=== PATIENT | male | born 1960 | race American Indian/Alaskan Native ===

== ENCOUNTER 2018-04-08 10:55 | Emergency (ER) | payer SELFPAY ==
[2018-04-08 15:46] LABS: Basophils # (Auto) 0.1 K/mm3 (0.0-0.1); Basophils % (Auto) 0.5 % (0.0-1.8); Eosinophils # (Auto) 0.3 K/mm3 (0.0-0.4); Eosinophils % (Auto) 2.9 % (0.0-4.3); Hemoglobin 16.3 gm/dl (11.8-15.2); Lymphocytes # (Auto) 2.8 K/mm3 (1.2-5.4); Lymphocytes % (Auto) 24.4 % (13.4-35.0); Mean Corpuscular HGB Conc 33 % (32-34); Mean Corpuscular Hemoglobin 28 pg (28-32); Mean Corpuscular Volume 87 fl (84-94); Monocytes # (Auto) 0.7 K/mm3 (0.0-0.8); Monocytes % (Auto) 5.9 % (0.0-7.3); Platelet Count 169 K/mm3 (140-440); Red Blood Count 5.77 M/mm3 (3.65-5.03); Red Cell Distribution Width 14.4 % (13.2-15.2)
[2018-04-08 15:49] LABS: BUN/Creatinine Ratio 17; Blood Urea Nitrogen 10 mg/dL (9-20); Calcium 9.8 mg/dL (8.4-10.2); Hemolysis Index 12
--- NOTE | 2018-04-08 16:36 | XRay Report ---
FINAL REPORT EXAM: XR FOOT 2V LT HISTORY: left foot wound TECHNIQUE: AP and lateral views of the left foot PRIORS: None. FINDINGS: There is no evidence for acute fracture or dislocation. A moderate hallux valgus deformity is present. No soft tissue swelling or radiopaque foreign bodies are seen. Bony mineralization is normal. Joint spaces are maintained. Spurring off the posterior and plantar aspects of the calcaneus is seen. Spurring off the dorsum of the tarsal bones is also noted. IMPRESSION: No acute soft tissue or bony abnormality noted. Moderate hallux valgus deformity.
[2018-04-08] MEDS ORDERED: CLEOCIN 900 MG/50 mL 900 MG/50 ML BAG IV ONE (21:00)
--- NOTE | 2018-04-08 21:31 | Emergency Department Report ---
ED Lower Extremity HPI - General Chief Complaint: Extremity Problem,Nontraumatic Stated Complaint: FOOT WOUND Time Seen by Provider: 04/08/18 20:54 Source: patient Mode of arrival: Ambulatory Limitations: No Limitations - History of Present Illness Initial Comments: 57-year-old male with a past medical history of [id number] diabetes and hypertension presents to the hospital complaining of open wound to the first MTP area of the left foot times one week. No trauma reported. Moderate pain with palpation and ambulation. Positive malodorous discharge from wound. No reports of fever. His glucose stating "up a little" but I have not been significantly high. Patient states his tetanus is up to date. PMD none - Related Data Previous Rx's Medication Instructions Recorded Last Taken Type Ibuprofen [Motrin] 800 mg PO Q8HR PRN #30 tablet 04/08/18 Unknown Rx Sulfamethoxazole/Trimethoprim 1 each PO BID #20 tablet 04/08/18 Unknown Rx [Bactrim DS TAB] traMADol [Ultram 50 MG tab] 50 mg PO Q6HR PRN #20 tablet 04/08/18 Unknown Rx Allergies Allergy/AdvReac Type Severity Reaction Status Date / Time No Known Allergies Allergy Verified 04/08/18 21:05 ED Review of Systems ROS: Stated complaint: FOOT WOUND Other details as noted in HPI Comment: All other systems reviewed and negative ED Past Medical Hx - Past Medical History Hx Hypertension: Yes Hx Diabetes: Yes - Surgical History Past Surgical History?: No - Social History Smoking Status: Current Every Day Smoker Substance Use Type: None - Medications Home Medications: Home Medications Medication Instructions Recorded Confirmed Last Taken Type Ibuprofen [Motrin] 800 mg PO Q8HR PRN #30 tablet 04/08/18 Unknown Rx Sulfamethoxazole/Trimethoprim 1 each PO BID #20 tablet 04/08/18 Unknown Rx [Bactrim DS TAB] traMADol [Ultram 50 MG tab] 50 mg PO Q6HR PRN #20 tablet 04/08/18 Unknown Rx ED Physical Exam - General Limitations: No Limitations - Other Other exam information: General: No limitations, patient is alert in no acute distress Head exam: Atraumatic, normocephalic Eyes exam: Normal appearance ENT: Moist mucous membrane, normal oropharynx Neck exam: Normal inspection, full range of motion, no meningismus nontender Respiratory exam: Clear to auscultation bilateral, no wheezes, rales, crackles Cardiovascular: Normal rate and rhythm, normal heart sounds Abdomen: Soft, nondistended, and nontender, with normal bowel sounds, no rebound, or guarding Extremity: Full range of motion left foot on plantar surface at the first MTP joint patient has a open wounds without any active drainage. Positive tenderness to palpation. No warmth or erythema. 2+ DP pulses without foot edema Back: Normal Inspection, full range of motion, no tenderness Neurologic: Alert, oriented x3, cranial nerves intact, no motor or sensory deficit Psychiatric: normal affect, normal mood Skin: See extremity exam ED Course Vital Signs 04/08/18 04/08/18 04/09/18 11:14 20:43 00:45 Temperature 98.3 F 97.6 F Pulse Rate 73 72 68 Respiratory 18 18 Rate Blood Pressure 177/98 Blood Pressure 188/107 151/62 [Right] O2 Sat by Pulse 97 98 100 Oximetry ED Lower Extremity MDM - Lab Data Result diagrams: 04/08/18 15:15 04/08/18 15:15 Lab Results 04/08/18 04/08/18 Range/Units 15:15 15:15 WBC 11.5 H (4.5-11.0) K/mm3 RBC 5.77 H (3.65-5.03) M/mm3 Hgb 16.3 H (11.8-15.2) gm/dl Hct 50.0 H (35.5-45.6) % MCV 87 (84-94) fl MCH 28 (28-32) pg MCHC 33 (32-34) % RDW 14.4 (13.2-15.2) % Plt Count 169 (140-440) K/mm3 Lymph % (Auto) 24.4 (13.4-35.0) % [place] % (Auto) 5.9 (0.0-7.3) % Eos % (Auto) 2.9 (0.0-4.3) % Baso % (Auto) 0.5 (0.0-1.8) % Lymph # 2.8 (1.2-5.4) K/mm3 [place] # 0.7 (0.0-0.8) K/mm3 Eos # 0.3 (0.0-0.4) K/mm3 Baso # 0.1 (0.0-0.1) K/mm3 Seg Neutrophils % 66.3 (40.0-70.0) % Seg Neutrophils # 7.6 (1.8-7.7) K/mm3 Sodium 134 L (137-145) mmol/L Potassium 4.0 (3.6-5.0) mmol/L Chloride 96.7 L (98-107) mmol/L Carbon Dioxide 23 (22-30) mmol/L Anion Gap 18 mmol/L BUN 10 (9-20) mg/dL Creatinine 0.6 L (0.8-1.5) mg/dL Estimated GFR > 60 ml/min BUN/Creatinine Ratio 17 % Glucose 237 H (75-100) mg/dL Calcium 9.8 (8.4-10.2) mg/dL - Radiology Data Radiology results: report reviewed Left foot x-ray: IMPRESSION: No acute soft tissue or bony abnormality noted. Moderate hallux valgus deformity. - Medical Decision Making Patient received one IV dose of antibiotics (vancomycin) and the ED. No signs of DKA or sepsis. Patient will be discharged home with pain medication and antibiotics. Wound care clinic and PMD follow-up will be encouraged. - Differential Diagnosis diabetic foot infection, osteomyelitis Critical Care Time: No Critical care attestation.: If time is entered above; I have spent that time in minutes in the direct care of this critically ill patient, excluding procedure time. ED Disposition Clinical Impression: Diabetic infection of left foot Diabetic foot ulcer Qualifiers: Diabetic foot ulcer location: other Diabetes mellitus type: type 2 Laterality: left Disposition: DC-01 TO HOME OR SELFCARE Is pt being admited?: No Condition: Stable Additional Instructions: Take the medications as prescribed. It is very important to follow-up with you the clinic/primary care doctor and the wound care clinic provided for further management of your diabetic foot infection. Without follow-up and further management you are at risk for worsening infection which can lead to amputation. Please return to the ER if symptoms worsen as indicated by your discharge instructions. Continue to monitor your sugar levels. Prescriptions: Ibuprofen [Motrin] 800 mg PO Q8HR PRN #30 tablet PRN Reason: Pain Sulfamethoxazole/Trimethoprim [Bactrim DS TAB] 1 each PO BID #20 tablet traMADol [Ultram 50 MG tab] 50 mg PO Q6HR PRN #20 tablet PRN Reason: Pain Referrals: [facility] [Provider Group] - 3-5 Days (Primary care clinic) DORA RODRIGUEZ MD [Staff Physician] - 3-5 Days (Primary care doctor) [facility] [Outside] - 3-5 Days (Wound care clinic) Time of Disposition: 00:54
[2018-04-08] MEDS: HumuLIN R IV ONE (22:14)
[2018-04-08] MEDS: VANCOMYCIN 2,000 MG in NACL 0.9% 500 ML 500 ML IV ONE (22:23)
[2018-04-09 00:46] VITALS: BP 151/62
== END 2018-04-09 01:18 | disposition home or self-care (01) ==
LOC: ED 10:55
DX: E11.621 Type 2 diabetes mellitus with foot ulcer (principal); L97.529 Non-pressure chronic ulcer of other part of left foot with unspecified severity; I10 Essential (primary) hypertension; F17.200 Nicotine dependence, unspecified, uncomplicated
CPT/HCPCS: 36415; 73620; 80048; 82962; 85025; 96365; 96366; 96375; 99284; J3370; J7040; J1815

== ENCOUNTER 2018-04-27 08:54 | Emergency (ER) | payer OTHER ==
[2018-04-27 10:14] LABS: Basophils % (Auto) 0.3 % (0.0-1.8); Eosinophils # (Auto) 0.1 K/mm3 (0.0-0.4); Eosinophils % (Auto) 1.6 % (0.0-4.3); Hematocrit 43.4 % (35.5-45.6); Hemoglobin 14.9 gm/dl (11.8-15.2); Lymphocytes # (Auto) 1.7 K/mm3 (1.2-5.4); Lymphocytes % (Auto) 20.8 % (13.4-35.0); Mean Corpuscular HGB Conc 34 % (32-34); Mean Corpuscular Hemoglobin 29 pg (28-32); Mean Corpuscular Volume 86 fl (84-94); Monocytes # (Auto) 0.3 K/mm3 (0.0-0.8); Monocytes % (Auto) 4.3 % (0.0-7.3); Platelet Count 136 K/mm3 (140-440); Red Blood Count 5.07 M/mm3 (3.65-5.03); Red Cell Distribution Width 14.5 % (13.2-15.2)
[2018-04-27 10:29] LABS: Alanine Aminotransferase 8 units/L (7-56); Albumin 3.5 g/dL (3.9-5); BUN/Creatinine Ratio 18; Blood Urea Nitrogen 9 mg/dL (9-20); Calcium 9.1 mg/dL (8.4-10.2); Hemolysis Index 9
[2018-04-27] MEDS ORDERED: VANCOMYCIN/NS 1 GM/250 ML 1 GM/250 ML BAG IV ONE (11:19)
--- NOTE | 2018-04-27 11:26 | Emergency Department Report ---
Blank Doc - Documentation Documentation: Patient is a 57-year-old male with history of hypertension and diabetes. Patient presented to the ER complaining left foot wound mainly to the heel with black discoloration and necrosis. Patient was seen here one week ago received IV vancomycin and put on oral clindamycin. Patient stated that he finished a course of antibiotic that his symptoms are getting worse now. Patient denied any fever, nausea or vomiting. On exam patient has an obvious gangrene to the first metatarsal area. 2+ dorsalis pedis and able to feel the tibialis posterior. Patient will need IV vancomycin, vascular consult and admission.
[2018-04-27] MEDS ORDERED: VANCOMYCIN PHARMACY TO DOSE IV SCH ×2 (12:00→13:00)
[2018-04-27] MEDS ORDERED: VANCOMYCIN 2,000 MG in NACL 0.9% 500 ML 500 ML IV ONE ×2 (12:00→12:30)
[2018-04-27] MEDS ORDERED: VANCOMYCIN VIAL IV ONE (12:06)
--- NOTE | 2018-04-27 12:15 | Emergency Department Report ---
ED Extremity Problem HPI - General Chief complaint: Extremity Problem,Nontraumatic Stated complaint: DIABETIC ULCER BLEEDING Time Seen by Provider: 04/27/18 11:09 Source: patient Mode of arrival: Ambulatory Limitations: No Limitations - History of Present Illness Initial comments: 57-year-old male with a past medical history hypertension and non-insulin- dependent diabetes presents to the hospital complaining of continued left foot ulceration. Ulceration developed earlier this month. I initially saw patient on April 08 after 1 week of symptoms. At that time he was treated with IV vancomycin, discharged on Bactrim, and referred to wound care clinic. Patient attempted to follow up with wound care clinic but they required $200 payment which he could not afford. Patient apparently has been noncompliant with his unknown blood pressure medication and his metformin 1 month for (which he did not mention on his last visit) and continues to smoke cigarettes. He finished his antibiotics several days ago but returns because the wounds is no better and he was unable to afford the wound care clinic. Patient does admit that he no longer has purulent discharge but now has malodorous bloody discharge. Denies fevers and pain is moderate in unchanged. - Related Data Previous Rx's Medication Instructions Recorded Last Taken Type Ibuprofen [Motrin] 800 mg PO Q8HR PRN #30 tablet 04/08/18 Unknown Rx Sulfamethoxazole/Trimethoprim 1 each PO BID #20 tablet 04/08/18 Unknown Rx [Bactrim DS TAB] traMADol [Ultram 50 MG tab] 50 mg PO Q6HR PRN #20 tablet 04/08/18 Unknown Rx Gabapentin [Neurontin] 300 mg PO BID #60 cap 04/27/18 Unknown Rx Lisinopril [Zestril TAB] 10 mg PO QDAY #30 tablet 04/27/18 Unknown Rx amLODIPine [Norvasc] 10 mg PO DAILY #30 tab 04/27/18 Unknown Rx metFORMIN [Glucophage] 500 mg PO BID #60 tablet 04/27/18 Unknown Rx Allergies Allergy/AdvReac Type Severity Reaction Status Date / Time No Known Allergies Allergy Verified 04/08/18 21:05 ED Review of Systems ROS: Stated complaint: DIABETIC ULCER BLEEDING Other details as noted in HPI Comment: All other systems reviewed and negative ED Past Medical Hx - Past Medical History Hx Hypertension: Yes Hx Diabetes: Yes - Surgical History Past Surgical History?: No - Social History Smoking Status: Current Every Day Smoker Substance Use Type: None - Medications Home Medications: Home Medications Medication Instructions Recorded Confirmed Last Taken Type Ibuprofen [Motrin] 800 mg PO Q8HR PRN #30 tablet 04/08/18 Unknown Rx Sulfamethoxazole/Trimethoprim 1 each PO BID #20 tablet 04/08/18 Unknown Rx [Bactrim DS TAB] traMADol [Ultram 50 MG tab] 50 mg PO Q6HR PRN #20 tablet 04/08/18 Unknown Rx Gabapentin [Neurontin] 300 mg PO BID #60 cap 04/27/18 Unknown Rx Lisinopril [Zestril TAB] 10 mg PO QDAY #30 tablet 04/27/18 Unknown Rx amLODIPine [Norvasc] 10 mg PO DAILY #30 tab 04/27/18 Unknown Rx metFORMIN [Glucophage] 500 mg PO BID #60 tablet 04/27/18 Unknown Rx ED Physical Exam - General Limitations: No Limitations - Other Other exam information: General: No limitations, patient is alert in no acute distress Head exam: Atraumatic, normocephalic Eyes exam: Normal appearance, ENT: Moist mucous membrane, normal oropharynx Neck exam: Normal inspection, full range of motion, no meningismus nontender Respiratory exam: Clear to auscultation bilateral, no wheezes, rales, crackles Cardiovascular: Regular heartbeat with early beats noted on auscultation Abdomen: Soft, nondistended, and nontender, with normal bowel sounds, no rebound, or guarding Extremity: Full range of motion, left foot ulceration at the MTP area of the first metatarsal phalangeal area of the plantar surface of the foot measuring 3 cm in diameter. This lesion is hard like a callus formation, brown in color, no active or malodorous purulent discharge noted. No surrounding erythema, warmth, or edema. 2+ DP pulse noted. Unable to palpate dorsalis pedal pulse but I am able to auscultate this pulse with Doppler. No lesion on the heel. No signs of gangrene to toes. Back: Normal Inspection, full range of motion, no tenderness Neurologic: Alert, oriented x3, cranial nerves intact, no motor or sensory deficit Psychiatric: normal affect, normal mood Skin: Warm, dry, intact ED Course Vital Signs 04/27/18 04/27/18 04/27/18 09:17 10:55 15:21 Temperature 98.5 F 98.1 F Pulse Rate 69 88 Respiratory 20 18 Rate Blood Pressure 170/95 Blood Pressure 168/91 [Left] O2 Sat by Pulse 96 96 97 Oximetry - Reevaluation(s) Reevaluation #1: 04/27/18 12:43 Hospitalist consulted regarding dispo to determine it pt meets admission criteria - Consultations Consultation #1: 04/27/18 12:50 Case d/w Keira regarding ekg findings. no acute emergent cards intervention warranted Consultation #2: 04/27/18 12:[address] Singh consulted to assisted with dispo planning. ED Medical Decision Making - Lab Data Result diagrams: 04/27/18 09:34 04/27/18 09:34 Lab Results 04/27/18 04/27/18 Range/Units 09:34 09:34 WBC 8.1 (4.5-11.0) K/mm3 RBC 5.07 H (3.65-5.03) M/mm3 Hgb 14.9 (11.8-15.2) gm/dl Hct 43.4 (35.5-45.6) % MCV 86 (84-94) fl MCH 29 (28-32) pg MCHC 34 (32-34) % RDW 14.5 (13.2-15.2) % Plt Count 136 L (140-440) K/mm3 Lymph % (Auto) 20.8 (13.4-35.0) % [place] % (Auto) 4.3 (0.0-7.3) % Eos % (Auto) 1.6 (0.0-4.3) % Baso % (Auto) 0.3 (0.0-1.8) % Lymph # 1.7 (1.2-5.4) K/mm3 [place] # 0.3 (0.0-0.8) K/mm3 Eos # 0.1 (0.0-0.4) K/mm3 Baso # 0.0 (0.0-0.1) K/mm3 Seg Neutrophils % 73.0 H (40.0-70.0) % Seg Neutrophils # 5.9 (1.8-7.7) K/mm3 Sodium 139 (137-145) mmol/L Potassium 3.7 (3.6-5.0) mmol/L Chloride 101.0 (98-107) mmol/L Carbon Dioxide 25 (22-30) mmol/L Anion Gap 17 mmol/L BUN 9 (9-20) mg/dL Creatinine 0.5 L (0.8-1.5) mg/dL Estimated GFR > 60 ml/min BUN/Creatinine Ratio 18 % Glucose 241 H (75-100) mg/dL Calcium 9.1 (8.4-10.2) mg/dL Total Bilirubin 0.40 (0.1-1.2) mg/dL AST 10 (5-40) units/L ALT 8 (7-56) units/L Alkaline Phosphatase 61 (35-129) units/L Total Protein 6.6 (6.3-8.2) g/dL Albumin 3.5 L (3.9-5) g/dL Albumin/Globulin Ratio 1.1 % - EKG Data -: EKG Interpreted by Me (supraventricular bigeminy, old anterior infarct) EKG shows normal: sinus rhythm, axis (qrs 34), QRS complexes (qrsd 82), ST-T waves (no stemi) Rate: normal (61) - EKG Data When compared to previous EKG there are: previous EKG unavailable - Medical Decision Making Patient has a nonhealing diabetic ulcer that appears to be improved infectious- mullins compared to previous visit. Although also persists there is no longer any purulent malodorous drainage. No leukocytosis, fever, redness, or edema. Pt has distal pulses on exam therefore emergent CT imaging is not warranted. Patient's lack of appropriate healing likely secondary to poor glucose control secondary to medication noncompliance and the fact that patient continues to smoke cigarettes. Patient will benefit from long-term wound care plan, lifestyle modification, compliance with medications. Patient was seen and evaluated by hospitalist Dr. Singh has assisted with disposition planning and arrangement of additional outpatient wound care services. In the ED patient received 1 dose of IV vancomycin, insulin as per sliding scale protocol, and lisinopril 20 mg for hypertension. - Differential Diagnosis diabetic foot ulcers, osteomyelitis Critical Care Time: No Critical care attestation.: If time is entered above; I have spent that time in minutes in the direct care of this critically ill patient, excluding procedure time. ED Disposition Clinical Impression: Diabetes, Foot ulcer, left, Non-compliance HTN (hypertension) Qualifiers: Hypertension type: essential hypertension Qualified Code(s): I10 - Essential ( primary) hypertension Disposition: - TO HOME OR SELFCARE Is pt being admited?: No Condition: Stable Instructions: Diabetes Mellitus Type 2 in Adults (ED), Diabetic Foot Ulcers (ED ), Hypertension (ED) Prescriptions: amLODIPine [Norvasc] 10 mg PO DAILY #30 tab Gabapentin [Neurontin] 300 mg PO BID #60 cap Lisinopril [Zestril TAB] 10 mg PO QDAY #30 tablet metFORMIN [Glucophage] 500 mg PO BID #60 tablet Referrals: [facility] [Outside] - 3-5 Days [facility] [Provider Group] - 3-5 Days Time of Disposition: 14:01 (Hosptitalist to dispo)
[2018-04-27] MEDS ORDERED: ZESTRIL PO ONE (12:17)
[2018-04-27] MEDS ORDERED: HumuLIN R IV ONE (12:17)
--- NOTE | 2018-04-27 12:49 | History and Physical Report ---
History of Present Illness Chief complaint: I have an ulcer on my foot History of present illness: 57 YO Male with DM, HTN,Nicotine Dependence, Medication Noncompliance presents to ED for evaluation. Pt seen and evaluated in ED and found to have a chronic Left foot ulcer which has improved since last visit. Pt seen and evaluated in ED. Pt states that he attempted to follow up with wound care clinic but they required $200 payment which he could not afford. Pt denies fever, chills, palpitations, NVD, trauma or recent ill contacts. Pt acknowledges poor foot care due to lack of resources. Pt counseled regarding medication noncompliance , and informed of risk of worsening symptoms and need for future amputation. Pt acknowledges understanding instructions. Past History Past Medical History: diabetes, hypertension Past Surgical History: No surgical history, Other (reviewed) Social history: , lives with family Family history: diabetes, hypertension Medications and Allergies Allergies Allergy/AdvReac Type Severity Reaction Status Date / Time No Known Allergies Allergy Verified 04/08/18 21:05 Home Medications Medication Instructions Recorded Confirmed Last Taken Type Ibuprofen [Motrin] 800 mg PO Q8HR PRN #30 tablet 04/08/18 Unknown Rx Sulfamethoxazole/Trimethoprim 1 each PO BID #20 tablet 04/08/18 Unknown Rx [Bactrim DS TAB] traMADol [Ultram 50 MG tab] 50 mg PO Q6HR PRN #20 tablet 04/08/18 Unknown Rx Active Meds: Active Medications Vancomycin HCl 2,000 mg/ (Sodium Chloride) 520 mls @ 250 mls/hr IV ONCE ONE Stop: 04/27/18 14:34 Vancomycin HCl (Vancomycin Pharmacy To Dose) 1 each IV PKCONSULT [facility] Review of Systems Constitutional: other (foot ulcer), no fever, no chills, no sweats Ears, nose, mouth and throat: no ear pain, no ear discharge, no tinnitis, no decreased hearing, no nose pain, no nasal congestion Cardiovascular: no chest pain, no orthopnea, no palpitations, no rapid/ irregular heart beat, no edema, no syncope, no lightheadedness Respiratory: no cough, no cough with sputum, no excessive sputum, no hemoptysis , no shortness of breath, no dyspnea on exertion Gastrointestinal: no abdominal pain, no nausea, no vomiting, no diarrhea, no constipation, no change in bowel habits, no hematemesis Genitourinary Male: no hematuria, no flank pain, no discharge, no urinary frequency, no urinary hesitancy Rectal: no pain, no incontinence, no bleeding Musculoskeletal: no neck stiffness, no neck pain, no shooting arm pain, no arm numbness/tingling, no low back pain, no shooting leg pain Integumentary: foot/leg ulcers (Left plantar ulcer, chronic, healing, no fluctuance, masses, discharge, or foul odor) Neurological: no paralysis, no weakness, no parathesias, no numbness, no tingling, no seizures, no syncope Psychiatric: no memory loss, no change in sleep habits, no sleep disturbances, no insomnia, no hypersomnia, no change in appetite, no change in libido Endocrine: no cold intolerance, no heat intolerance, no polyphagia, no polydipsia, no polyuria Hematologic/Lymphatic: no easy bruising, no easy bleeding, no lymphadenopathy, no lymphedema Allergic/Immunologic: no urticaria, no allergic rhinitis, no wheezing, no persistent infections, no angioedema Exam - Constitutional Vitals: Temp Pulse Resp BP Pulse Ox 98.5 F 69 20 170/95 96 04/27/18 09:17 04/27/18 09:17 04/27/18 10:55 04/27/18 09:17 04/27/18 10:55 General appearance: Present: no acute distress, well-nourished - EENT Eyes: Present: PERRL ENT: hearing intact, clear oral mucosa - Neck Neck: Present: supple, normal ROM - Respiratory Respiratory effort: normal Respiratory: bilateral: CTA - Cardiovascular Heart Sounds: Present: S1 & S2. Absent: rub, click - Extremities Extremities: pulses symmetrical, No edema Extremity abnormal: ulceration (Left plantar ulcer, no fluctuance, masses, discharge, foul odor, pain upon ambulation) Peripheral Pulses: within normal limits - Abdominal General gastrointestinal: Present: soft, non-tender, non-distended, normal bowel sounds Male genitourinary: Present: normal - Integumentary Integumentary: Present: clear, warm, dry - Musculoskeletal Musculoskeletal: gait normal, strength equal bilaterally - Psychiatric Psychiatric: appropriate mood/affect, intact judgment & insight - Neurologic Neurologic: CNII-XII intact, moves all extremities Results - Labs CBC & Chem 7: 04/27/18 09:34 04/27/18 09:34 Labs: Abnormal lab results 04/27/18 04/27/18 Range/Units 09:34 09:34 RBC 5.07 H (3.65-5.03) M/mm3 Plt Count 136 L (140-440) K/mm3 Seg Neutrophils % 73.0 H (40.0-70.0) % Creatinine 0.5 L (0.8-1.5) mg/dL Glucose 241 H (75-100) mg/dL Albumin 3.5 L (3.9-5) g/dL Assessment and Plan - Patient Problems (1) Foot ulcer, left Current Visit: Yes Status: Acute Plan to address problem: Outpatient wound clinic f/u, (2) Diabetes Current Visit: Yes Status: Acute Plan to address problem: consistent carbohydrate diet, f/u pcp 1wk, blood glucose log bid. (3) HTN (hypertension) Current Visit: Yes Status: Acute Qualifiers: Hypertension type: essential hypertension Qualified Code(s): I10 - Essential (primary) hypertension Plan to address problem: resume prehospital medication, blood pressure log tid,
[2018-04-27 16:59] VITALS: BP 168/91
--- NOTE | 2018-05-02 14:13 | XRay Report ---
FINAL REPORT PROCEDURE: Left foot. TECHNIQUE: Three views. HISTORY: First metatarsal infection. COMPARISON: Left foot 04/08/2018. FINDINGS: The bones appear intact without fracture or dislocation. There is mild osteoarthritis involving the 1st metatarsal-phalangeal joint. There is a mild hallux valgus deformity. The remaining joint spaces appear satisfactory. There may be some air within the soft tissues on the plantar surface near the 1st metatarsal-phalangeal joint. This could also represent an ulcer with an overlying bandage. Clinical correlation is recommended. IMPRESSION: Possible soft tissue infection. 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
== END 2018-04-27 16:25 | disposition home or self-care (01) ==
LOC: ED 08:54
DX: E11.621 Type 2 diabetes mellitus with foot ulcer (principal); L97.429 Non-pressure chronic ulcer of left heel and midfoot with unspecified severity; I10 Essential (primary) hypertension; F17.200 Nicotine dependence, unspecified, uncomplicated; Z79.4 Long term (current) use of insulin
CPT/HCPCS: 36415; 73630; 80053; 85025; 93005; 93010; 96374; 99284; J3370; J7040

== ENCOUNTER 2018-09-05 07:50 | Outpatient (CLI) | payer SELFPAY ==
[2018-09-05] MEDS ORDERED: XYLOCAINE TOPICAL 4% TP ONE ×2 (08:15→09:52)
== END 2018-09-05 07:51 | disposition home or self-care (01) ==
LOC: WOUND 07:50
PROVIDERS: ATTEND Surgery
DX: E11.621 Type 2 diabetes mellitus with foot ulcer (principal); L89.893 Pressure ulcer of other site, stage 3; L97.512 Non-pressure chronic ulcer of other part of right foot with fat layer exposed; I10 Essential (primary) hypertension
CPT/HCPCS: 11043; G0463; 99215

== ENCOUNTER 2018-09-19 07:50 | Outpatient (CLI) | payer OTHER ==
[2018-09-19] MEDS ORDERED: XYLOCAINE TOPICAL 4% TP ONE ×2 (08:09→15:41)
== END 2018-09-19 07:51 | disposition home or self-care (01) ==
LOC: WOUND 07:50
PROVIDERS: ATTEND Surgery
DX: E11.621 Type 2 diabetes mellitus with foot ulcer (principal); L89.893 Pressure ulcer of other site, stage 3; L97.512 Non-pressure chronic ulcer of other part of right foot with fat layer exposed; I10 Essential (primary) hypertension; F17.200 Nicotine dependence, unspecified, uncomplicated

== ENCOUNTER 2020-08-11 07:56 | Emergency (ER) | payer OTHER, SELFPAY ==
[2020-08-11 08:24] LABS: Basophils % (Auto) 0.4 % (0.0-1.8); Eosinophils # (Auto) 0.1 K/mm3 (0.0-0.4); Eosinophils % (Auto) 1.4 % (0.0-4.3); Hematocrit 46.8 % (35.5-45.6); Hemoglobin 16.2 gm/dl (11.8-15.2); Lymphocytes # (Auto) 2.1 K/mm3 (1.2-5.4); Mean Corpuscular HGB Conc 35 % (32-34); Mean Corpuscular Volume 89 fl (84-94); Monocytes # (Auto) 0.3 K/mm3 (0.0-0.8); Monocytes % (Auto) 5.5 % (0.0-7.3); Platelet Count 157 K/mm3 (140-440); Red Blood Count 5.24 M/mm3 (3.65-5.03); Red Cell Distribution Width 14.2 % (13.2-15.2)
[2020-08-11 08:33] LABS: Bilirubin,Urine NEG (Negative); Blood,Urine SM (Negative); Color,Urine Yellow (Yellow); Hyaline Casts,Urine 1 /LPF; Mucus,Urine FEW /HPF
[2020-08-11 09:01] LABS: Alanine Aminotransferase 8 units/L (7-56); BUN/Creatinine Ratio 10; Blood Urea Nitrogen 7 mg/dL (9-20); Calcium 9.9 mg/dL (8.4-10.2); Hemolysis Index 7
[2020-08-11] MEDS ORDERED: POTASSIUM CHLORIDE ER 20 MEQ TAB PO ONE ×2 (09:37→12:34)
[2020-08-11] MEDS ORDERED: SODIUM CHLORIDE 0.9% 1000 ML 1,000 ML IV ONE (09:38)
--- NOTE | 2020-08-11 11:11 | Cat Scan Report ---
CT OF THE ABDOMEN AND PELVIS WITH INTRAVENOUS CONTRAST INDICATION / CLINICAL INFORMATION: Abdominal pain and massive weight loss. TECHNIQUE: The patient received 100 cc Omnipaque [address] scans at this location are performed using CT dose reduction for ALARA by means of automated exposure control. COMPARISON: None available. FINDINGS: ABDOMEN: The gallbladder is surgically absent. There are a couple of small nonspecific calcifications in the periphery of the liver. No other focal liver lesion is seen. The bile ducts, pancreas, spleen , adrenal glands, kidneys and bowel demonstrate no significant abnormality. No adenopathy is seen. Th ere are atherosclerotic calcifications involving the aorta without aneurysm. There is minimal right b asilar subsegmental atelectasis. PELVIS: The distal ureters and urinary bladder are normal. The prostate gland is mildly enlarged. A n ormal appendix is present and there is no evidence of diverticulitis. No abnormal mass or fluid colle ction is seen. I do not identify a hernia. There is mild spondylosis. IMPRESSION: No acute abnormality is identified. No cause for weight loss is seen. Signer Name: Fazal Nayak MD Signed: 08/11/2020 11:07 AM Workstation Name: [id number]
[2020-08-11 11:19] LABS: Free T4 (Free Thyroxine) 1.36 ng/dL (0.76-1.46)
[2020-08-11] MEDS ORDERED: ONDANSETRON 4 MG/2 ML INJ IV ONE (11:43)
[2020-08-11] MEDS ORDERED: MORPHINE 2 MG/1 ML INJ IV ONE (11:43)
--- NOTE | 2020-08-11 11:56 | Emergency Department Report ---
ED General Adult HPI - General Chief complaint: Weakness Stated complaint: ABD PAIN, DIARREHA Time Seen by Provider: 08/11/20 09:36 Source: patient, family Mode of arrival: Wheelchair Limitations: No Limitations - History of Present Illness Initial comments: This is a 60-year-old male who gives a scattered and somewhat and/or partially incomprehensible history. He states that he was 501 pounds and lost 300 pounds in a year. He states he has lost 50 pounds in the last month. He states that he has had a work-up at [facility] to include a negative colonoscopy and a CT scan that showed "lesions in my liver". He tells me that [facility] told him that these lesions were not due to cancer because his colonoscopy was negative. Certainly that part is not additive or conclusive. He does admit that after his divorce, he lost his [employer] insurance and ability to follow-up on these problems. In any case he is here for evaluation of abdominal pain and "diarrhea". He tells me that his last bowel movement was 3 days ago. He states that he had 3 loose stools that day but none thereafter. He does describe anorexia. He does not describe dysphasia or odynophagia. He denies any evidence of GI bleeding. His abdominal pain is somewhat diffuse intermittent abdominal of moderate intensity and quite chronic. He admits that he has been having symptoms for years to some degree. He does not know if he has had testing for thyroid disorder. -: Gradual, month(s), year(s) Location: abdomen Radiation: non-radiation Quality: aching Consistency: intermittent Improves with: none Worsens with: none Associated Symptoms: other (Diarrhea then no bowel movement for 3 days no vomiting. Extreme weight loss.) Treatments Prior to Arrival: none - Related Data Previous Rx's Medication Instructions Recorded Last Taken Type Ibuprofen [Motrin] 800 mg PO Q8HR PRN #30 tablet 04/08/18 Unknown Rx Sulfamethoxazole/Trimethoprim 1 each PO BID #20 tablet 04/08/18 Unknown Rx [Bactrim DS TAB] traMADoL [Ultram 50 MG tab] 50 mg PO Q6HR PRN #20 tablet 04/08/18 Unknown Rx Gabapentin [Neurontin] 300 mg PO BID #60 cap 04/27/18 Unknown Rx amLODIPine 10 mg PO DAILY #30 tab 04/27/18 Unknown Rx lisinopriL [Zestril TAB] 10 mg PO QDAY #30 tablet 04/27/18 Unknown Rx metFORMIN [Glucophage] 500 mg PO BID #60 tablet 04/27/18 Unknown Rx Amlodipine Besylate [Norvasc] 5 mg PO DAILY #30 tablet 08/11/20 Unknown Rx Potassium Chloride [K-Dur] 10 meq PO QDAY #30 tablet 08/11/20 Unknown Rx Allergies Allergy/AdvReac Type Severity Reaction Status Date / Time No Known Allergies Allergy Verified 04/08/18 21:05 ED Review of Systems ROS: Stated complaint: ABD PAIN, DIARREHA Other details as noted in HPI Constitutional: other (Anorexia). denies: chills, fever Eyes: denies: eye pain, eye discharge, vision change ENT: denies: ear pain, throat pain Respiratory: denies: cough, shortness of breath, wheezing Cardiovascular: denies: chest pain, palpitations Endocrine: no symptoms reported Gastrointestinal: abdominal pain, diarrhea. denies: nausea, hematemesis, melena, hematochezia Genitourinary: denies: urgency, dysuria Musculoskeletal: denies: back pain, joint swelling, arthralgia Skin: denies: rash, lesions Neurological: denies: headache, weakness, paresthesias Psychiatric: denies: anxiety, depression Hematological/Lymphatic: denies: easy bleeding, easy bruising ED Past Medical Hx - Past Medical History Previous Medical History?: Yes Hx Hypertension: Yes Hx Diabetes: Yes - Surgical History Past Surgical History?: No - Social History Smoking Status: Current Every Day Smoker Substance Use Type: None - Medications Home Medications: Home Medications Medication Instructions Recorded Confirmed Last Taken Type Ibuprofen [Motrin] 800 mg PO Q8HR PRN #30 tablet 04/08/18 Unknown Rx Sulfamethoxazole/Trimethoprim 1 each PO BID #20 tablet 04/08/18 Unknown Rx [Bactrim DS TAB] traMADoL [Ultram 50 MG tab] 50 mg PO Q6HR PRN #20 tablet 04/08/18 Unknown Rx Gabapentin [Neurontin] 300 mg PO BID #60 cap 04/27/18 Unknown Rx amLODIPine 10 mg PO DAILY #30 tab 04/27/18 Unknown Rx lisinopriL [Zestril TAB] 10 mg PO QDAY #30 tablet 04/27/18 Unknown Rx metFORMIN [Glucophage] 500 mg PO BID #60 tablet 04/27/18 Unknown Rx Amlodipine Besylate [Norvasc] 5 mg PO DAILY #30 tablet 08/11/20 Unknown Rx Potassium Chloride [K-Dur] 10 meq PO QDAY #30 tablet 08/11/20 Unknown Rx ED Physical Exam - General Limitations: No Limitations General appearance: alert, in no apparent distress - Head Head exam: Present: atraumatic, normocephalic - Eye Eye exam: Present: normal appearance. Absent: scleral icterus - ENT ENT exam: Present: mucous membranes moist - Neck Neck exam: Present: normal inspection - Respiratory Respiratory exam: Present: normal lung sounds bilaterally. Absent: respiratory distress - Cardiovascular Cardiovascular Exam: Present: regular rate, normal rhythm. Absent: systolic murmur, diastolic murmur, rubs, gallop - GI/Abdominal GI/Abdominal exam: Present: soft, tenderness (Somewhat poorly localized), normal bowel sounds. Absent: distended, guarding, rebound, rigid - Rectal Rectal exam: Present: deferred - Extremities Exam Extremities exam: Present: normal inspection - Back Exam Back exam: Present: normal inspection - Neurological Exam Neurological exam: Present: alert, oriented X3, CN II-XII intact. Absent: motor sensory deficit - Psychiatric Psychiatric exam: Present: normal affect, normal mood - Skin Skin exam: Present: warm, dry, intact, normal color. Absent: rash ED Course Vital Signs 08/11/20 11:58 Pulse Rate 65 Respiratory 15 Rate Blood Pressure 208/89 [Right] O2 Sat by Pulse 98 Oximetry - Reevaluation(s) Reevaluation #1: Patient clinically improved. He is noncompliant with his blood pressure medicine. I will give him something that will not affect his potassium. He is chronically hypokalemic and has been previously even potassium for that. I do not know what component of his weakness is secondary to his hypo-kalemia but that is certainly expiratory. He was also volume depleted. Both the signs have been addressed. CT of the abdomen and pelvis did not show neoplastic disease. A chest x-ray showed a superior mediastinal mass on the left that the radiologist thought might be thyroid tissue. They recommended a nonurgent ultrasound. I do not know the etiology of this either. However, this is something for outpatient work-up. Patient states that he now has an appointment with [facility]. Thus the patient will be placed on potassium replacement therapy. He will be given something for his blood pressure. He is given return criteria. Further work-up in the outpatient setting is recommended. 08/11/20 12:59 ED Medical Decision Making - Lab Data Result diagrams: 08/11/20 08:10 08/11/20 08:10 Laboratory Results - last 24 hr 08/11/20 08/11/20 08/11/20 08:10 08:10 08:10 WBC 6.3 RBC 5.24 H Hgb 16.2 H Hct 46.8 H MCV 89 MCH 31 MCHC 35 H RDW 14.2 Plt Count 157 Lymph % (Auto) 34.0 Barbour % (Auto) 5.5 Eos % (Auto) 1.4 Baso % (Auto) 0.4 Lymph # 2.1 Barbour # 0.3 Eos # 0.1 Baso # 0.0 Seg Neutrophils % 58.7 Seg Neutrophils # 3.7 Sodium 138 Potassium 2.9 L* Chloride 94.8 L Carbon Dioxide 29 Anion Gap 17 BUN 7 L Creatinine 0.7 L Estimated GFR > 60 BUN/Creatinine Ratio 10 Glucose 128 H Calcium 9.9 Magnesium 1.70 Total Bilirubin 0.60 AST 14 ALT 8 Alkaline Phosphatase 58 Total Protein 7.3 Albumin 4.0 Albumin/Globulin Ratio 1.2 Lipase 11 L TSH Free T4 Urine Color Urine Turbidity Urine pH Ur Specific Lawrence Urine Protein Urine Glucose (UA) Urine Ketones Urine Blood Urine Nitrite Urine Bilirubin Urine Urobilinogen Ur Leukocyte Esterase Urine WBC (Auto) Urine RBC (Auto) U Epithel Cells (Auto) Hyaline Casts Urine Mucus 08/11/20 08/11/20 10:33 Unknown WBC RBC Hgb Hct MCV MCH MCHC RDW Plt Count Lymph % (Auto) Barbour % (Auto) Eos % (Auto) Baso % (Auto) Lymph # Barbour # Eos # Baso # Seg Neutrophils % Seg Neutrophils # Sodium Potassium Chloride Carbon Dioxide Anion Gap BUN Creatinine Estimated GFR BUN/Creatinine Ratio Glucose Calcium Magnesium Total Bilirubin AST ALT Alkaline Phosphatase Total Protein Albumin Albumin/Globulin Ratio Lipase TSH 1.880 Free T4 1.36 Urine Color Yellow Urine Turbidity Clear Urine pH 6.0 Ur Specific Lawrence 1.014 Urine Protein 100 mg/dl Urine Glucose (UA) Neg Urine Ketones Neg Urine Blood Sm Urine Nitrite Neg Urine Bilirubin Neg Urine Urobilinogen 4.0 Ur Leukocyte Esterase Neg Urine WBC (Auto) 3.0 Urine RBC (Auto) 4.0 U Epithel Cells (Auto) 2.0 Hyaline Casts 1 Urine Mucus Few - Radiology Data Radiology results: report reviewed FINDINGS: ABDOMEN: The gallbladder is surgically absent. There are a couple of small nonspecific calcifications in the periphery of the liver. No other focal liver lesion is se en. The bile ducts, pancreas, spleen, adrenal glands, kidneys and bowel demonstrate no significant abnormality. No adenopathy is seen. There are atherosclerotic calcifications involving the aorta without aneurysm. There is minimal right basilar subsegmental atelectasis. PELVIS: The distal ureters and urinary bladder are normal. The prostate gland is mildly enlarged. A normal appendix is present and there is no evidence of diverticulitis. No abnormal mass or fluid collection is seen. I do not identify a hernia. There is mild spondylosis. IMPRESSION: No acute abnormality is identified. No cause for weight loss is seen. Critical care attestation.: If time is entered above; I have spent that time in minutes in the direct care of this critically ill patient, excluding procedure time. ED Disposition Clinical Impression: Hypokalemia, Insulin dependent diabetes mellitus, Weight loss, Mediastinal mass, Dehydration Clinical Impression: (Ruled Out): Foot ulcer, left Disposition: DC-01 TO HOME OR SELFCARE Is pt being admited?: No Does the pt Need Aspirin: No Condition: Stable Instructions: Diabetes Mellitus Type 2 in Adults (ED) Additional Instructions: Bring the paperwork to the [facility]. They also should have access to the medical records from today's work-up. Rx to maintain your potassium. Rx for blood pressure. Increase your fluids. Follow-up with the [facility]. Try to get an earlier appointment. Prescriptions: Potassium Chloride [K-Dur] 10 meq PO QDAY #30 tablet Amlodipine Besylate [Norvasc] 5 mg PO DAILY #30 tablet Referrals: PRIMARY CARE, [Primary Care Provider] - 3-5 Days Time of Disposition: 13:05
[2020-08-11] MEDS ORDERED: MAGNESIUM SULFATE 2 GM/50 ML BAG IV ONE (12:02)
[2020-08-11 12:16] LABS: Amphetamine Screen,Urine PRESUMPTIVE NEGATIVE; Benzodiazepines Screen,Urine PRESUMPTIVE NEGATIVE; Cannabinoid Screen,Urine PRESUMPTIVE NEGATIVE; Cocaine Screen,Urine PRESUMPTIVE NEGATIVE; Methadone Screen,Urine PRESUMPTIVE NEGATIVE; Opiate Screen,Urine PRESUMPTIVE NEGATIVE
--- NOTE | 2020-08-11 12:33 | XRay Report ---
CHEST 1 VIEW 12:09 PM INDICATION / CLINICAL INFORMATION: Hypertension. COMPARISON: None available. FINDINGS: SUPPORT DEVICES: None. HEART / MEDIASTINUM: The heart size and pulmonary vasculature are normal. The aorta is normal in valeriy sushil. There is mild widening of the superior mediastinum on the left with deviation of the trachea to the right. LUNGS / PLEURA: No significant pulmonary or pleural abnormality. No pneumothorax. ADDITIONAL FINDINGS: No significant additional findings. IMPRESSION: 1. No acute pulmonary disease. 2. Left superior mediastinal mass is most commonly related to thyroid gland pathology. Nonemergent th yroid ultrasound may be helpful in further evaluation. Signer Name: Fazal Nayak MD Signed: 08/11/2020 12:28 PM Workstation Name: [id number]
[2020-08-11 14:30] VITALS: BP 192/99
== END 2020-08-11 14:34 | disposition home or self-care (01) ==
LOC: ED 07:56
DX: E87.6 Hypokalemia (principal); E11.9 Type 2 diabetes mellitus without complications; E86.0 Dehydration; R63.4 Abnormal weight loss; J98.59 Other diseases of mediastinum, not elsewhere classified; I10 Essential (primary) hypertension; F17.200 Nicotine dependence, unspecified, uncomplicated; Z79.899 Other long term (current) drug therapy
CPT/HCPCS: 36415; 71045; 74177; 80053; 80307; 81001; 83690; 83735; 84439; 84443; 85025; 96361; 96365; 96375; 99284; J2270; J2405; J3475; J7030; Q9967

== ENCOUNTER 2020-09-16 13:12 | Outpatient (CLI) | payer OTHER ==
[2020-09-16] MEDS ORDERED: LIDOCAINE (4%) 40 MG/ML TOPICAL SOLN 50 ML BOTTLE TP ONE (13:13)
== END 2020-09-16 13:13 | disposition home or self-care (01) ==
LOC: WOUND 13:12
PROVIDERS: ATTEND Surgery
DX: E11.621 Type 2 diabetes mellitus with foot ulcer (principal); L97.512 Non-pressure chronic ulcer of other part of right foot with fat layer exposed; L97.522 Non-pressure chronic ulcer of other part of left foot with fat layer exposed; L84 Corns and callosities; E11.628 Type 2 diabetes mellitus with other skin complications; I10 Essential (primary) hypertension; F17.200 Nicotine dependence, unspecified, uncomplicated
CPT/HCPCS: 11042; 11045; G0463; 99214